=== PATIENT | male | born 1950 | race Caucasian/White ===

== ENCOUNTER 2024-10-20 15:15 | Outpatient (RCR) | payer MEDICARE, SELFPAY ==
--- NOTE | 2024-08-31 08:47 | PCPTNOTE ---
pt no showed initial evaluation this date, unable to reach via phone
--- NOTE | 2024-09-07 12:20 | OTOPEVAL1 ---
Assessment and note entered by Brenda Polanco OT Evaluation Information Assessment Status Evaluation ICD-10 Condition Codes (OT) Generalized muscle weakness M62.81 Other ICD-10 Condition Codes ( M48.04, R26.81, M62.81, R.29.6, G20.A1 OT) Subjective Information Pt. reports history of frequent falls, over 20 since the 07 of May. Pt. in acute inpatient rehab for a week, discharged on 08/19/24. Pt. reports he walks with 2 hiking poles when walking with spouse for exercises, can in the home during the day, and a walker at night when using the bathroom. Pt. reports difficulties with dressing lower body, getting in and out of his tub shower safely. Pt. reports he is limited in out of the home activities independently due to instability and quickness to fatigue, unable to safety go to grocery shopping or working out in the gardening, as well as IADLs, which assists with as needed due to increasing unsteadiness with mobility. Reported Pain Level Pain Score 0: Self Report Assessment OT Clinical Summary Pt. 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 in 2015. Pt. presents with generalized weakness and instability with, chronic ROM limitations in at bilateral shoulders due to rotator cuff injuries, and limitations in dexterity and bilateral coordination. Pt. will benefit from skilled OT services including UE strengthening and stabilization, therapeutic exercises and activities for increasing dexterity and bilateral coordination, home safety education, and dynamic standing balance for functional transfers and standing activities to facilitate increased functional capacity and decreased fall occurrence. Plan of Care Interventions Therapeutic Exercise,Neuro Re-education, Therapeutic Activities,Self-Care/Home Management OT Services Indicated Yes Treatment Frequency and 2 x/wk for 10 visits Duration These treatments will address the objective and functional deficits as defined above. The patient will be advanced safely and appropriately in order for the patient to progress towards his/her prior level of function. Additional exercises will be introduced and as well as a comprehensive home exercise program upon discharge, if needed, ?to ensure carryover of functional gains achieved in the clinic. This treatment plan has been reviewed and agreement upon by the patient.
--- NOTE | 2024-09-07 12:20 | OPREHPOC ---
Outpatient Therapy Plan of Care This is a Multidisciplinary Plan of Care that may contain components documented by all disciplines (PT, OT, and ST.) OT Problem 1 OT Problem #1 Knowledge Deficit OT Goal 1 Goal / Goal Update Pt. will be independent in HEP, completing 5/7 days/week Target Visit 10 OT Problem 2 OT Problem #2 Impaired Balance OT Goal 1 Goal / Goal Update Pt. will demonstrate increased balance and stability as demonstrated by <5 falls during functional activities during treatment duration Target Visit 20 OT Problem 3 OT Problem #3 Impaired Coordination OT Goal 1 Goal / Goal Update Pt. will demonstrate increased fine coordination in UE as demonstrated by reducing 9-hole peg test time to <35 seconds bilaterally Target Visit 20
--- NOTE | 2024-09-28 18:10 | OPREHPOC ---
Outpatient Therapy Plan of Care This is a Multidisciplinary Plan of Care that may contain components documented by all disciplines (PT, OT, and ST.) PT Problem 1 PT Problem #1 Knowledge Deficit PT Goal 1 Goal / Goal Update Patient to demonstrate independence with HEP for improved self-reliance of symptom management. Target Visit 5 PT Goal 1 Goal / Goal Update 1. Patient to improve distance ambulated during 2MWT to 400 feet to demonstrate an improvement in walking endurance. 2. Patient to score >=28/56 on the De Jesus Balance Scale to show improvements in balance and decreased fall risk. 3. Patient to perform 5xSTS from 23 sec to 15 sec to demonstrate an increase in B LE functional strength required for transfers. Target Visit 10 PT Goal 1 Goal / Goal Update 1. Patient to demonstrate BLE strength >=4+/5 for improved functional stability required for ADLs. 2. Pt to perform L SLS >=5 sec for improved single limb stability required during gait cycle. 3. Pt to perform R SLS >=5 sec for improved single limb stability required during gait cycle. Target Visit 10 OT Problem 1 OT Problem #1 Knowledge Deficit OT Goal 1 Goal / Goal Update Pt. will be independent in HEP, completing 5/7 days/week Target Visit 10 OT Problem 2 OT Problem #2 Impaired Balance OT Goal 1 Goal / Goal Update Pt. will demonstrate increased balance and stability as demonstrated by <5 falls during functional activities during treatment duration Target Visit 20 OT Problem 3 OT Problem #3 Impaired Coordination OT Goal 1 Goal / Goal Update Pt. will demonstrate increased fine coordination in UE as demonstrated by reducing 9-hole peg test time to <35 seconds bilaterally Target Visit 20
--- NOTE | 2024-09-28 18:11 | PTOPEVAL1 ---
Assessment and note entered by Mary Wallace, PT Evaluation Information Assessment Status Evaluation Diagnosis M48.08, R26.81, M62.81, R.29.6 , G20.A1 Subjective Information Pt reports history of 24 falls since May 07, 2024. Most recent fall 2 weeks ago when trying to open a gate to take his dog for a walk. Pt went to acute rehab x 1 week, discharged on 08/19/24. Typically walked with 2 walking poles. Uses cane in the home as primary AD but 2WW at night when going to the bathroom. Notes difficulty with lower body dressing, getting in/out of the tub shower safety. Reports quick fatigue and instability that prevent him from going to the grocery store, gardening, or assisting with ADLs. His currently assists as needed due to unsteadiness. He thinks when he squats down to try and get something off the floor instead of bending at his waist because he will fall forward. He will attempt to squat or drop to 1 knee to prevent a fall but then he can't get back up. Reported Pain Level Pain Score 0: Self Report Pain Score 0: Self Report Assessment PT Clinical Summary Pt is a 74 year old male, referred after discharge from acute rehab for repeated falls with a h/o Parkinsonism, thoracic spinal stenosis, acute myeloid leukemia, Graft vs Host disease, and R shoulder fracture 2014. Pt demonstrates BLE weakness, decreased functional mobility and transfers, abnormal posture, gait deficit, decreased endurance, decreased flexibility, and impaired balance posing a fall risk that limit their ability to perform ADLs. Pt will benefit from skilled physical therapy to address the above listed deficits and return to PLOF. Plan of Care PT Services Indicated Yes Treatment Frequency and 2x/wk for 10 sessions Duration These treatments will address the objective and functional deficits as defined above. The patient will be advanced safely and appropriately in order for the patient to progress towards his/her prior level of function. Additional exercises will be introduced and as well as a comprehensive home exercise program upon discharge, if needed, ?to ensure carryover of functional gains achieved in the clinic. This treatment plan has been reviewed and agreement upon by the patient.
--- NOTE | 2024-10-14 11:34 | PCOTNOTE ---
Patient/patient's called and cancelled OT tx yesterday 10/13/24.
--- NOTE | 2024-10-14 11:35 | PCOTNOTE ---
Patient/patient's called and cancelled Tuesday 10/17 appointment due to having another MD appt that day.
--- NOTE | 2024-10-25 15:25 | PTOPDC ---
Assessment and note entered by Benita Catherine, PT Evaluation Information Assessment Status Discharge - Pt Not Present Diagnosis M48.08, R26.81, M62.81, R.29.6 , G20.A1 Assessment PT Clinical Summary Since initiation of PT, pt has attended 4 sessions including his evaluation. He has since fallen on two separate occasions, breaking his arm in two places and is currently hospitalized. With the large change in status, he is being discharged from current PT POC and will be able to resume therapy once he has returned home and with updated prescription. Plan of Care PT Services Indicated No
--- NOTE | 2024-10-31 13:56 | OTOPDC ---
Assessment and note entered by Brian Dunaway, OTR/L, [facility] OT D/C 07/31/24 OT Clinical Summary Patient was attending outpatient OT services for the diagnosis of Parkinson's Disease. The patient is unfortunately hospitalized due to falling and sustaining a fracture in his arm. Discharging services at this time.
== END 2024-10-31 11:46 | disposition home or self-care (01) ==
LOC: ANHHIOT 15:15
PROVIDERS: PCP Emergency Medicine; Visit Provider Emergency Medicine
DX: M48.04 Spinal stenosis, thoracic region (principal); M62.81 Muscle weakness (generalized); G20.A1 Parkinson's disease without dyskinesia, without mention of fluctuations; R26.81 Unsteadiness on feet; R29.6 Repeated falls
CPT/HCPCS: 97110; 97112; 97116; 97161; 97165; 97530; 97535